=== PATIENT | female | born 1970 | race Caucasian/White ===

== ENCOUNTER 2017-01-23 18:37 | Inpatient (IN) | payer OTHER ==
[~2017-01-23] VITALS: Ht 172.7 cm; Wt 72.6 kg
[~2017-01-23 18:37] MED LIST: AMLO10TA2 PO; CARV6.2512 PO; FURO40TA6 PO; LISI5TAB7 PO; LOSA1TAB7 PO; METO25TA91 PO; POTA10TA PO
[2017-01-23] MEDS ORDERED: SODIUM CHLORIDE FLUSH 10ML SYR IVF ONE (19:00)
[2017-01-23 19:13] LABS: HEMOGLOBIN 13.8 g/dL (11.7-16.4)
[2017-01-23 19:26] LABS: ASPARTATE AMINO TRANSFERASE 39 U/L (15-37); BLOOD UREA NITROGEN 15 mg/dL (7-18)
[2017-01-23] MEDS ORDERED: KETOROLAC 30 MG/1 ML ONE (19:26)
[2017-01-23] MEDS ORDERED: KETOROLAC 30 MG/1 ML IVPush ONE (19:30)
[2017-01-23 19:32] LABS: IS PT STATUS REG ER OR PRE ER? YES
[2017-01-23] MEDS ORDERED: ASPIRIN 81 MG TABLET CHEW ONE (20:18)
[2017-01-23] MEDS ORDERED: NITROGLYCERIN SINGLE TAB 0.4 MG SL ONE ×2 (20:18→20:34)
[2017-01-23] MEDS: NITROGLYCERIN SINGLE TAB 0.4 MG SL PRN ×2 (20:19→20:37)
[2017-01-23] MEDS ORDERED: ASPIRIN 81 MG TABLET CHEW PO ONE (20:30)
[2017-01-23] MEDS ORDERED: LORazepam 2 MG/ML, 1ML IVPush ONE (21:00)
[2017-01-23] MEDS ORDERED: LORazepam 2 MG/ML, 1ML ONE (21:15)
[2017-01-23] MEDS ORDERED: NITROGLYCERIN 0.4 MG BOTTLE (25 TABS) SL PRN (23:00)
[2017-01-23] MEDS ORDERED: ACETAMINOPHEN 325 MG TABLET PO PRN (23:00)
[2017-01-23] MEDS ORDERED: DOCUSATE 100 MG CAPSULE PO PRN (23:00)
[2017-01-23] MEDS ORDERED: LORazepam 1MG TABLET PO PRN (23:00)
[2017-01-23] MEDS ORDERED: HYDROcodone/APAP 5/325 TABLET ONE (23:39)
[2017-01-23] MEDS: HYDROcodone/APAP 5/325 TABLET PO PRN (23:40)
[2017-01-23] MEDS: LISINOPRIL 5 MG TABLET PO SCH (23:40)
[2017-01-24 01:41] LABS: IS PT STATUS REG ER OR PRE ER? YES
[2017-01-24] MEDS: CARVEDILOL 6.25 MG TABLET PO SCH ×2 (06:00→18:18)
[2017-01-24 07:25] LABS: HEMOGLOBIN 12.4 g/dL (11.7-16.4)
[2017-01-24 07:37] LABS: BLOOD UREA NITROGEN 18 mg/dL (7-18)
[2017-01-24] MEDS ORDERED: SODIUM CHLORIDE 0.9% 1,000 ML IV ONE (08:07)
[2017-01-24 08:12] LABS: IS PT STATUS REG ER OR PRE ER? YES
[2017-01-24] MEDS ORDERED: LABETALOL 20 MG/4 ML IV PRN (09:00)
[2017-01-24] MEDS: FUROSEMIDE 40 MG TABLET PO SCH (09:00)
[2017-01-24] MEDS ORDERED: ENALAPRILAT 1.25 MG/ML, 2ML IV PRN (09:00)
[2017-01-24] MEDS ORDERED: LIDOCAINE 2%, 20ML ONE (10:34)
[2017-01-24] MEDS ORDERED: MIDAZOLAM 1 MG/ML, 5ML ONE (10:36)
[2017-01-24] MEDS ORDERED: HEPARIN 1,000 UNITS/ML, 10ML ONE (10:37)
[2017-01-24] MEDS ORDERED: FENTANYL PF 100 MCG/2ML ONE (10:37)
[2017-01-24] MEDS ORDERED: VERAPAMIL 2.5 MG/ML, 2ML ONE (10:37)
[2017-01-24] MEDS ORDERED: BIVALIRUDIN 250 MG ONE (10:37)
[2017-01-24] MEDS ORDERED: TICAGRELOR 90 MG TABLET ONE (10:37)
[2017-01-24 11:05] LABS: IS PT STATUS REG ER OR PRE ER? NO
[2017-01-24] MEDS: SODIUM CHLORIDE 0.9% 1,000 ML IV SCH ×2 (11:40→19:40)
[2017-01-24] MEDS: HYDROcodone/APAP 5/325 TABLET PO PRN ×2 (13:29→17:25)
[2017-01-24 13:49] VITALS: BP 125/79
[2017-01-24] MEDS: POTASSIUM CHLORIDE 10 MEQ TABLET.ER PO SCH (14:14)
[2017-01-24] MEDS: SPIRONOLACTONE 25 MG TABLET PO SCH (14:14)
[2017-01-24] MEDS: LISINOPRIL 5 MG TABLET PO SCH ×2 (14:14→20:47)
[2017-01-24 17:13] LABS: DAU SCREEN DISCLAIMER
[2017-01-24 17:25] LABS: HCG UR OBC PASS
[2017-01-24 20:02] VITALS: BP 122/78
[2017-01-25] VITALS (8 sets, daily range): BP systolic 120–140; BP diastolic 79–92
[2017-01-25] MEDS: SODIUM CHLORIDE 0.9% 1,000 ML IV SCH (03:40)
[2017-01-25] MEDS: CARVEDILOL 6.25 MG TABLET PO SCH (05:26)
[2017-01-25 06:09] LABS: HEMOGLOBIN 11.9 g/dL (11.7-16.4)
[2017-01-25 06:35] LABS: ASPARTATE AMINO TRANSFERASE 28 U/L (15-37); BLOOD UREA NITROGEN 18 mg/dL (7-18)
[2017-01-25] MEDS: FUROSEMIDE 40 MG TABLET PO SCH (09:05)
[2017-01-25] MEDS: LISINOPRIL 5 MG TABLET PO SCH ×2 (09:05→20:38)
[2017-01-25] MEDS: POTASSIUM CHLORIDE 10 MEQ TABLET.ER PO SCH (09:05)
[2017-01-25] MEDS: SPIRONOLACTONE 25 MG TABLET PO SCH (09:05)
[2017-01-25] MEDS: IBUPROFEN 600 MG TABLET PO SCH ×3 (10:24→20:38)
[2017-01-25] MEDS: CARVEDILOL 12.5 MG TABLET PO SCH ×2 (11:51→18:10)
[2017-01-25] MEDS: HYDROcodone/APAP 5/325 TABLET PO PRN (21:55)
[2017-01-26 01:15] VITALS: BP 124/73
[2017-01-26 05:23] VITALS: BP 123/76
[2017-01-26] MEDS: CARVEDILOL 12.5 MG TABLET PO SCH (05:23)
[2017-01-26 07:03] VITALS: BP 125/77
[2017-01-26] MEDS: SPIRONOLACTONE 25 MG TABLET PO SCH (08:47)
[2017-01-26] MEDS: POTASSIUM CHLORIDE 10 MEQ TABLET.ER PO SCH (08:47)
[2017-01-26] MEDS: FUROSEMIDE 40 MG TABLET PO SCH (08:47)
[2017-01-26] MEDS: IBUPROFEN 600 MG TABLET PO SCH (08:47)
[2017-01-26] MEDS: LISINOPRIL 5 MG TABLET PO SCH (08:47)
[2017-01-26] MEDS ORDERED: IBUP-1222 PO (09:36)
[2017-01-26] MEDS ORDERED: ALPR0.25 PO (09:36)
[2017-01-26] MEDS ORDERED: SPIR25TA PO (09:36)
[2017-01-26] MEDS ORDERED: CARV12.543 PO (09:36)
== END 2017-01-26 11:50 | disposition home or self-care (01) | DRG 287 ==
LOC: ED 20:00 → EDIP 20:33 → 5SO 01-24 08:35 → DCLOUNGE 01-26 11:05
PROVIDERS: ADMIT Internal Medicine; ATTEND Family Medicine
PROC: 4A023N7 Measurement of Cardiac Sampling and Pressure, Left Heart, Percutaneous Approach (ICD-10-PCS; principal; 2017-01-24)
PROC: B2151ZZ Fluoroscopy of Left Heart using Low Osmolar Contrast (ICD-10-PCS; 2017-01-24)
PROC: B2111ZZ Fluoroscopy of Multiple Coronary Arteries using Low Osmolar Contrast (ICD-10-PCS; 2017-01-24)
DX: I47.2 Ventricular tachycardia (principal); I50.22 Chronic systolic (congestive) heart failure; I42.9 Cardiomyopathy, unspecified; I11.0 Hypertensive heart disease with heart failure; F41.9 Anxiety disorder, unspecified; R73.03 Prediabetes; E78.5 Hyperlipidemia, unspecified; R07.81 Pleurodynia; M54.5 Low back pain; G89.29 Other chronic pain; R71.8 Other abnormality of red blood cells; F15.10 Other stimulant abuse, uncomplicated; Z87.891 Personal history of nicotine dependence; Z91.14 Patient's other noncompliance with medication regimen; Z82.49 Family history of ischemic heart disease and other diseases of the circulatory system; Z79.899 Other long term (current) drug therapy; Z91.410 Personal history of adult physical and sexual abuse; Z88.0 Allergy status to penicillin; Z88.2 Allergy status to sulfonamides; Z71.6 Tobacco abuse counseling
CPT/HCPCS: 36415; 71010; 80048; 80053; 80061; 80307; 81025; 83036; 83880; 84484; 85025; 85610; 93005; 93306; 93458; 96374; 96375; C1894; J0583; J1644; J1885; J2250; J3010; J3490; J2060; J7512; Q9967

== ENCOUNTER 2017-06-14 12:40 | Emergency (ER) | payer OTHER ==
[~2017-06-14] VITALS: Ht 172.7 cm; Wt 78.5 kg
[~2017-06-14 12:40] MED LIST changes: +ALPR0.25 PO; +CARV12.543 PO; +IBUP-1222 PO; +SPIR25TA PO
[2017-06-14] MEDS ORDERED: SODIUM CHLORIDE FLUSH 10ML SYR IVF ONE (13:30)
[2017-06-14 13:46] LABS: HEMATOCRIT 40.6 % (34.6-47.8); HEMOGLOBIN 13.6 g/dL (11.7-16.4); WHITE BLOOD COUNT 6.8 x10^3/uL (3.4-10)
[2017-06-14 13:54] LABS: BLOOD UREA NITROGEN 13 mg/dL (7-18)
[2017-06-14 14:00] LABS: IS PT STATUS REG ER OR PRE ER? YES
[2017-06-14 15:29] VITALS: BP 99/65
== END 2017-06-14 15:31 | disposition home or self-care (01) ==
LOC: ED 14:02
DX: R07.2 Precordial pain (principal); R06.00 Dyspnea, unspecified; E11.9 Type 2 diabetes mellitus without complications; I50.9 Heart failure, unspecified; Z87.891 Personal history of nicotine dependence
CPT/HCPCS: 36415; 71010; 80048; 82040; 83880; 84439; 84443; 84484; 85025; 93005; 99285

== ENCOUNTER 2017-12-12 22:16 | Inpatient (IN) | payer MEDICAID, OTHER ==
[~2017-12-12] VITALS: Ht 172.7 cm; Wt 88.8 kg
[2017-12-12] MEDS ORDERED: ONDANSETRON ODT 4 MG ONE (22:29)
[2017-12-12] MEDS ORDERED: SODIUM CHLORIDE 0.9% 1,000ML IVBOLUS ONE (23:00)
[2017-12-12] MEDS ORDERED: DIAZEPAM 5 MG/ML, 10ML VIAL IVPush ONE (23:00)
[2017-12-12 23:07] LABS: BASOPHILS # (AUTO) 0.04 x10^3/uL (0-0.1); BASOPHILS % (AUTO) 0 % (0-1); EOSINOPHILS # (AUTO) 0.57 x10^3/uL (0-0.4); EOSINOPHILS % (AUTO) 6 % (1-7); LYMPHOCYTES # (AUTO) 2.68 x10^3/uL (1-3.4); LYMPHOCYTES % (AUTO) 29 % (22-44); MD NO; MEAN CORPUSCULAR HEMOGLOBIN 28.6 pg (27.0-34.8); MEAN CORPUSCULAR HGB CONC 32.5 g/dL (32.4-35.8); MEAN PLATELET VOLUME 9.1 fL (7.4-10.4); MONOCYTES # (AUTO) 0.49 x10^3/uL (0.2-0.8); MONOCYTES % (AUTO) 5 % (2-9); NEUTROPHILS # (AUTO) 5.59 x10^3/uL (1.8-6.8); NEUTROPHILS % (AUTO) 60 % (42-75); PLATELET COUNT 258 x10^3/uL (130-400); RED BLOOD COUNT 4.81 x10^6/uL (3.82-5.3); RED CELL DISTRIBUTION WIDTH 13.6 % (9.6-15.2)
[2017-12-12 23:20] LABS: ALANINE AMINOTRANSFERASE 29 U/L (12-78); ALBUMIN 3.7 g/dL (3.4-5.0); ANION GAP 9 mmol/L (5-15); CALCIUM 8.4 mg/dL (8.5-10.1); CHLORIDE 108 mmol/L (98-107); CREATININE 1.14 mg/dL (0.55-1.02)
[2017-12-12 23:24] LABS: ALKALINE PHOSPHATASE 112 U/L (45-117); BILIRUBIN,TOTAL 0.2 mg/dL (0.2-1.0); TOTAL PROTEIN 7.3 g/dL (6.4-8.2); TROPONIN I 0.018 ng/mL (0.000-0.045)
[2017-12-13] MEDS ORDERED: LISI-167 PO (01:02)
[2017-12-13] MEDS ORDERED: SODIUM CHLORIDE 0.9% 1,000 ML IV ONE (01:11)
[2017-12-13] MEDS ORDERED: ONDANSETRON 2MG/ML, 2ML IVPush PRN (01:30)
[2017-12-13 01:55] VITALS: BP 103/67
[2017-12-13 02:28] VITALS: BP 103/69
[2017-12-13] MEDS ORDERED: ONDANSETRON ODT 4 MG PO ONE (02:30)
[2017-12-13 02:32] LABS: HCG UR SG 1.025 (1.003-1.030)
[2017-12-13 02:34] LABS: MICROSCOPIC INDICATED
[2017-12-13 02:40] LABS: AMPHETAMINE SCREEN, URINE Negative (Negative); BARBITURATE SCREEN, URINE Negative (Negative); BENZODIAZEPINE SCREEN, URINE Positive (Negative); CANNABINOID SCREEN, URINE Negative (Negative); COCAINE SCREEN, URINE Negative (Negative); METHADONE SCREEN, URINE Negative (Negative); OPIATE SCREEN, URINE Negative (Negative)
[2017-12-13 02:45] LABS: CULTURE INDICATED? YES
[2017-12-13] MEDS ORDERED: ACETAMINOPHEN 325 MG TABLET PO PRN (06:00)
[2017-12-13] MEDS ORDERED: GLUCAGON 1 MG IM PRN (06:00)
[2017-12-13] MEDS ORDERED: DEXTROSE 4 GM TAB.CHEW PO PRN (06:00)
[2017-12-13] MEDS ORDERED: POLYETHYLENE GLYCOL 17 GM PACKET PO PRN (06:00)
[2017-12-13] MEDS ORDERED: morphine SULFATE 10 MG/ML, 1ML IVPush PRN (06:00)
[2017-12-13] MEDS ORDERED: DEXTROSE 50%, 50ML SYRINGE IVPush PRN (06:00)
[2017-12-13] MEDS ORDERED: DOCUSATE 100 MG CAPSULE PO PRN (06:00)
[2017-12-13] MEDS ORDERED: CEFTRIAXONE PMX 1GM/50ML 50 ML IV SCH (06:00)
[2017-12-13] MEDS: HYDROcodone/APAP 5/325 TABLET PO PRN ×3 (06:27→21:26)
[2017-12-13] MEDS: ONDANSETRON 2MG/ML, 2ML IVPush PRN ×2 (06:27→18:38)
[2017-12-13] MEDS: NS + 20MEQ KCL 1,000 ML IV SCH ×2 (07:00→22:48)
[2017-12-13] MEDS: INSULIN LISPRO 100 UNITS/ML, PEN SQ-INSULIN SCH ×4 (07:00→20:59)
[2017-12-13] MEDS ORDERED: GADOBUTROL 10 MMOL/10 ML PFS ONE (07:34)
[2017-12-13 07:43] VITALS: BP 95/61
[2017-12-13] MEDS ORDERED: LISINOPRIL 10 MG TABLET PO SCH ×2 (09:00→21:00)
[2017-12-13] MEDS: SPIRONOLACTONE 25 MG TABLET PO SCH (09:00)
[2017-12-13] MEDS: FUROSEMIDE 40 MG TABLET PO SCH (09:00)
[2017-12-13] MEDS: SODIUM CHLORIDE FLUSH 10ML SYR IVF SCH ×2 (09:00→22:48)
[2017-12-13] MEDS: POTASSIUM CHLORIDE 10 MEQ TABLET.ER PO SCH (09:00)
[2017-12-13] MEDS: SENNA/DOCUSATE TABLET PO SCH (09:00)
[2017-12-13] MEDS: CARVEDILOL 12.5 MG TABLET PO SCH ×2 (10:38→21:25)
[2017-12-13] MEDS ORDERED: VISIPAQUE 320MG/ML, 50ML BOTTLE ONE (13:00)
[2017-12-13] MEDS ORDERED: VISIPAQUE 320 MG/ML, 150ML BOTTLE ONE (13:00)
[2017-12-13 13:01] VITALS: BP 94/62
[2017-12-13] MEDS ORDERED: LIDOCAINE 1%, 20ML ONE (13:17)
[2017-12-13] MEDS ORDERED: MIDAZOLAM 1 MG/ML, 2ML ONE ×2 (13:25)
[2017-12-13] MEDS ORDERED: FENTANYL PF 100 MCG/2ML ONE (13:25)
[2017-12-13] MEDS ORDERED: NALOXONE 1 MG/ML, 2ML ONE (13:26)
[2017-12-13] MEDS ORDERED: FLUMAZENIL 0.1 MG/1 ML, 5ML ONE (13:26)
[2017-12-13 15:32] VITALS: BP 104/61
[2017-12-13 19:30] VITALS: BP 99/66
[2017-12-14 00:02] VITALS: BP 89/55
[2017-12-14 03:44] VITALS: BP 87/55
[2017-12-14] MEDS: HYDROcodone/APAP 5/325 TABLET PO PRN (06:04)
[2017-12-14] MEDS: INSULIN LISPRO 100 UNITS/ML, PEN SQ-INSULIN SCH ×2 (07:00→11:00)
[2017-12-14 07:03] VITALS: BP 90/60
[2017-12-14] MEDS ORDERED: MECLIZINE CHEWABLE 25 MG TAB PO PRN (07:30)
[2017-12-14] MEDS: FUROSEMIDE 40 MG TABLET PO SCH (07:33)
[2017-12-14] MEDS: CARVEDILOL 12.5 MG TABLET PO SCH (07:33)
[2017-12-14] MEDS: SPIRONOLACTONE 25 MG TABLET PO SCH (07:33)
[2017-12-14] MEDS: SENNA/DOCUSATE TABLET PO SCH (08:11)
[2017-12-14] MEDS: POTASSIUM CHLORIDE 10 MEQ TABLET.ER PO SCH (08:11)
[2017-12-14] MEDS: SODIUM CHLORIDE FLUSH 10ML SYR IVF SCH (08:12)
[2017-12-14 13:57] VITALS: BP 112/76
[2017-12-14] MEDS ORDERED: ASPI-621 PO (14:51)
[2017-12-14] MEDS ORDERED: MECL-85 PO (14:52)
[2017-12-15] MEDS ORDERED: ASPIRIN 81 MG TABLET EC PO SCH (06:00)
== END 2017-12-14 16:37 | disposition home or self-care (01) | DRG 71 ==
LOC: ED 23:21 → EDIP 12-13 01:11 → 3NE 12-13 01:54 → 4EST 12-13 15:12 → DCLOUNGE 12-14 16:29
PROVIDERS: ADMIT Family Medicine; ATTEND Family Medicine
PROC: B3131ZZ Fluoroscopy of Right Common Carotid Artery using Low Osmolar Contrast (ICD-10-PCS; principal; 2017-12-13)
PROC: B31G1ZZ Fluoroscopy of Bilateral Vertebral Arteries using Low Osmolar Contrast (ICD-10-PCS; 2017-12-13)
PROC: B3161ZZ Fluoroscopy of Right Internal Carotid Artery using Low Osmolar Contrast (ICD-10-PCS; 2017-12-13)
PROC: B3191ZZ Fluoroscopy of Right External Carotid Artery using Low Osmolar Contrast (ICD-10-PCS; 2017-12-13)
DX: G93.9 Disorder of brain, unspecified (principal); N39.0 Urinary tract infection, site not specified; I50.9 Heart failure, unspecified; I72.6 Aneurysm of vertebral artery; E11.9 Type 2 diabetes mellitus without complications; H83.09 Labyrinthitis, unspecified ear; I25.2 Old myocardial infarction; R32 Unspecified urinary incontinence; Z88.0 Allergy status to penicillin; Z88.2 Allergy status to sulfonamides; Z79.82 Long term (current) use of aspirin; Z79.899 Other long term (current) drug therapy; Z87.891 Personal history of nicotine dependence
CPT/HCPCS: 36226; 36415; 70450; 70546; 70553; 71045; 80053; 80307; 81001; 81025; 82962; 83690; 84484; 85025; 87086; 93005; 96361; 96374; 99156; 99157; A9585; J0696; J2250; J2405; J3010; J3360; J3480; J3490; Q0162; Q9967; C1751; C1769; J2310; J7030

== ENCOUNTER → 2018-07-17 | Outpatient (CLI) | payer MEDICAID ==
[~2018-07-17] MED LIST changes: -AMLO10TA2 PO; +AMLO10TA6 PO; +ASPI-621 PO; +LISI-167 PO; +MECL-85 PO
== END | disposition home or self-care (01) ==
LOC: CFH 14:14
PROVIDERS: ATTEND Neurological Surgery
DX: I65.02 Occlusion and stenosis of left vertebral artery (principal); I72.6 Aneurysm of vertebral artery; I72.8 Aneurysm of other specified arteries; I50.9 Heart failure, unspecified
CPT/HCPCS: 70544; 70547

== ENCOUNTER → 2018-12-20 | Outpatient (CLI) | payer MEDICAID ==
[~2018-12-20] MED LIST changes: -AMLO10TA6 PO; +AMLO10TA8 PO; -ASPI-621 PO; +ASPI81TA45 PO
== END | disposition home or self-care (01) ==
LOC: CFH 09:55
PROVIDERS: ATTEND Internal Medicine Cardiovascular Disease
DX: I42.9 Cardiomyopathy, unspecified (principal); I10 Essential (primary) hypertension; E78.5 Hyperlipidemia, unspecified
CPT/HCPCS: 93306

== ENCOUNTER → 2019-01-25 | Outpatient (CLI) | payer MEDICAID ==
[~2019-01-25] MED LIST changes: +OMNIPAQUE 350 MG/ML, 100ML BOTTLE ONE
== END | disposition home or self-care (01) ==
LOC: CFH 12:20
PROVIDERS: ATTEND Neurological Surgery
DX: I65.02 Occlusion and stenosis of left vertebral artery (principal); I72.6 Aneurysm of vertebral artery; I77.1 Stricture of artery
CPT/HCPCS: 70496; 70498; Q9967

== ENCOUNTER → 2019-12-27 | Outpatient (CLI) | payer MEDICAID ==
[~2019-12-27] MED LIST changes: -OMNIPAQUE 350 MG/ML, 100ML BOTTLE ONE
== END | disposition home or self-care (01) ==
LOC: CFH 07:57
PROVIDERS: ATTEND Internal Medicine Cardiovascular Disease
DX: I08.1 Rheumatic disorders of both mitral and tricuspid valves (principal); I10 Essential (primary) hypertension
CPT/HCPCS: 93306; 93356

== ENCOUNTER 2021-05-05 16:25 | Emergency (ER) | payer MEDICAID ==
[~2021-05-05] VITALS: Ht 172.7 cm; Wt 75.9 kg
[~2021-05-05 16:25] MED LIST changes: +AMLO-211 PO; -AMLO10TA8 PO
--- NOTE | 2021-05-05 17:28 | NUR ---
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
--- NOTE | 2021-05-05 17:35 | NUR ---
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
--- NOTE | 2021-05-05 17:58 | NUR ---
PT STATES CP OFF AND ON X1 MONTH. STATES WAS SENT TO ER BY [facility] TODAY BECAUSE OF CP (BY [facility]ENT TO [facility] FOR [facility] AND MENTIONED MONTH LONG CP AND WAS TOLD TO GO TO ER) PT PLACED ON MONITORS, ASSESSED BY IMANI FISCHER. PER DR. BALLARD, NO NEED TO START IV AT THIS TIME, ORDER CX. CONT TO MONITOR.
[2021-05-05] MEDS ORDERED: SODIUM CHLORIDE FLUSH 10ML SYR IVF ONE (18:00)
[2021-05-05 18:12] LABS: BASOPHILS % (AUTO) 1 % (0-1); EOSINOPHILS % (AUTO) 3 % (1-7); LYMPHOCYTES % (AUTO) 29 % (22-44); MEAN CORPUSCULAR HGB CONC 34.2 g/dL (32.4-35.8); MEAN PLATELET VOLUME 10.1 fL (7.4-10.4); MONOCYTES % (AUTO) 7 % (2-9); NEUTROPHILS % (AUTO) 61 % (42-75); PLATELET COUNT 209 x10^3/uL (130-400); RED BLOOD COUNT 5.14 x10^6/uL (3.82-5.3); RED CELL DISTRIBUTION WIDTH 13.2 % (9.6-15.2)
[2021-05-05 18:22] LABS: ALBUMIN 4.1 g/dL (3.4-5.0); ANION GAP 4 mmol/L (5-15); CALCIUM 8.9 mg/dL (8.5-10.1); CHLORIDE 106 mmol/L (98-107); CREATININE 0.91 mg/dL (0.55-1.02)
[2021-05-05 18:26] LABS: TROPONIN I < 0.015 ng/mL (0.000-0.045)
[2021-05-05 19:24] VITALS: BP 134/79
== END 2021-05-05 19:36 | disposition home or self-care (01) ==
LOC: ED 16:55
DX: R07.89 Other chest pain (principal); E11.9 Type 2 diabetes mellitus without complications; I25.2 Old myocardial infarction; I50.9 Heart failure, unspecified; Z88.0 Allergy status to penicillin; Z88.2 Allergy status to sulfonamides; Z87.891 Personal history of nicotine dependence
CPT/HCPCS: 36415; 71045; 80048; 82040; 83880; 84484; 85025; 85379; 93005; 99284; 99285